=== PATIENT | male | born 1980 | race Caucasian/White ===

== ENCOUNTER 2024-04-21 17:11 | Emergency (ER) | payer OTHER ==
[~2024-04-21] VITALS: Ht 182.9 cm; Wt 122.5 kg
[2024-04-21] MEDS ORDERED: DOXY100T2 PO (17:29)
[2024-04-21] MEDS ORDERED: AMLO10TA59 PO (17:29)
[2024-04-21] MEDS ORDERED: predniSONE 20 MG TABLET ONE (18:03)
[2024-04-21] MEDS: predniSONE 20 MG TABLET PO ONE (18:06)
[2024-04-21] MEDS ORDERED: PRED20TA PO (18:12)
[2024-04-21] MEDS ORDERED: CLOB15CR10 TP (18:12)
[2024-04-21 18:20] VITALS: BP 146/92; O2SAT 99
== END 2024-04-21 18:18 | disposition home or self-care (01) ==
LOC: ER 17:11
DX: L23.7 Allergic contact dermatitis due to plants, except food (principal); Z79.1 Long term (current) use of non-steroidal anti-inflammatories (NSAID); Z79.899 Other long term (current) drug therapy; Z60.2 Problems related to living alone
CPT/HCPCS: 99283; J7512; A4606; A4663